=== PATIENT | female | born 2000 | race Caucasian/White ===

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

== ENCOUNTER → 2018-02-28 | Day surgery (SDC) | payer OTHER ==
[~2018-02-28] MED LIST: Dexamethasone 20 MG/5 ML VIAL ONE; Fentanyl 100 MCG/2 ML VIAL ONE; Hydrocodone-Acetamin 15 ML UDCUP ONE; Lidocaine 1% PF 5 ML VIAL ONE; Lidocaine 1% w/Epinephrine 1:100K 30 ML VIAL ONE; Midazolam HCl 2 mg/2 ml Vial ONE; Ondansetron PF 4 MG/2 ML Vial ONE; Oxymetazoline HCl 0.05% ( 15 ML ) ONE; PROPOFOL 200 MG/20 ML VIAL ONE; Succinylcholine Chloride 20 MG/ML 10 ml SYRINGE FS ONE
[2018-02-28 07:55] LABS: BHCG - Serum Negative (NEGATIVE); Pregs Control Background? CLEAR/WHITE (CLR/WHITE); Pregs Control Bar Appear? YES (CONTROL BAR)
--- NOTE | 2018-02-28 09:35 | OP ---
DATE OF PROCEDURE: 02/28/2018 PREOPERATIVE DIAGNOSES: 1. Chronic tonsillitis. 2. Obstructive tonsillar hypertrophy. 3. Obstructive inferior turbinate hypertrophy. POSTOPERATIVE DIAGNOSES: 1. Chronic tonsillitis. 2. Obstructive tonsillar hypertrophy. 3. Obstructive inferior turbinate hypertrophy. PROCEDURES PERFORMED: Tonsillectomy and adenoidectomy over 12 years of age and bilateral nasal endos copy with submucosal resection of inferior turbinates. PROCEDURE #1: TONSILLECTOMY AND ADENOIDECTOMY OVER 12 YEARS OF AGE. PROCEDURE IN DETAIL: After consent was obtained, the patient was identified, brought to the operatin g room, and placed on the operating table in the supine position. General endotracheal anesthesia and intravenous access was obtained and we proceeded with positioning the patient for oropharyngeal surg catarino. Oropharyngeal exposure was obtained with a Zane-Phani mouth gag after a head drape was placed a nd secured with a towel clip. The Zane-Phani mouth gag was then suspended from the Greene tray and pa latal elevation was achieved with a red rubber catheter. We first addressed the adenoid bed and visu alized it under direct mirror visualization with a dental mirror. Under direct visualization, the ad enoids were removed with multiple passes of the adenoid curet. The Cosme-Synephrine saturated gauze sp onge was then placed in the nasopharynx and an appropriate period for hemostasis was observed while t he nasal pack was in place. We proceeded with a tonsillectomy. The right tonsil was addressed first . We used a curved Allis to grasp the tonsil and retract it medially as an anterior pillar incision was made with a #12 blade. The retrotonsillar fascial plane was then established and blunt dissectio n was performed with the suction cautery. Blood vessels were anticipated, identified, and cauterized as they were encountered. Ultimately, dissection was carried to the posterior tonsillar pillar muco sa which was incised hemostatically, as well as the base of tongue connection. The tonsil was then p assed off as a specimen and bleeding points within the tonsillar bed were cauterized under direct vis ualization. We subsequently turned our attention to the contralateral side, where using a similar te chnique, a near identical procedure was performed. Again, the tonsil was grasped and retracted media lly with a curved Allis as an anterior pillar incision was made with a #12 blade. The retrotonsillar fascial plane was established and while the anterior pillar was retracted medially, the hemostatic bl unt dissection of the tonsil with a suction cautery was performed with blood vessels anticipated, alan ntified, and cauterized as they were encountered. Again, dissection continued to the base of tongue and posterior tonsillar pillar mucosa which was incised in a hemostatic fashion. The tonsillar beds were then carefully inspected and bleeding points were identified and cauterized with a suction caute ry. We then removed the nasopharyngeal pack, suctioned the residual blood and the adenoid bed was th en cauterized under direct mirror visualization and residual adenoid tissue was vaporized at this courtney e. After this portion of the procedure, hemostasis was completely obtained. The patient's nasal cav ity, nasopharyngeal, and oral cavity were copiously irrigated with iced saline and subsequently sucti oned. We then used the red rubber catheter to suction the gastric contents and the patient was subse quently aroused, awakened, and extubated without difficulty and transported to the recovery room in s table condition. There were no complications. PROCEDURE #2: BILATERAL NASAL ENDOSCOPY WITH SUBMUCOSAL RESECTION OF INFERIOR TURBINATES. PROCEDURE IN DETAIL: After consent was obtained, the patient was identified, brought to the operatin g room, and placed on the operating room table in the supine position. Consent was obtained, notifyi ng the patient of the possibility of additional infections, bleeding, brain injury, and eye/orbital i njury. The patient was placed on the operating room table, and general endotracheal anesthesia and intravenous access was obtained. The patient was then positioned, prepped and draped for endoscopic sinus surgery. Nasal preparation included trimming nasal vestibular hairs and spraying in topical Af rin. We then placed Afrin topical solution on nasal pledgets and strategically located them intranas ally. The perinasal mucosa was injected with 1% lidocaine with 1:100,000 epinephrine in the submucop erichondrial plane of the septum, lateral nasal wall, and anterior to the uncinate. The patient was then prepped and draped in a sterile fashion and positioned for endoscopic sinus surgery. (Endoscopic Sinus Surgery) With the 0-degree endoscope, the patient underwent systematic nasal endoscopy. There were no suspici ous internasal masses or lesions identified. We then focused our attention to the osteomeatal comple x region under the middle turbinate. At this point, we then turned our attention to the contralateral side and proceeded with endoscopic s inus surgery. At the completion of the case, Rice keel splints were placed in the ethmoid cavities after the ethmoidectomy. There were no complications. The patient tolerated the procedure well and was discharged to the recovery room in stable condition prior to return to the preoperative Day Stay with ultimate discharge home. Prescriptions for pain medication and antibiotics were provid ed. The patient received intramuscular Depo-Medrol during the case.
== END ==
LOC: SDC 06:59
PROVIDERS: ATTEND Specialist
PROC: 0CTPXZZ Resection of Tonsils, External Approach (ICD-10-PCS; principal; 2018-02-28)
PROC: 09TL8ZZ Resection of Nasal Turbinate, Via Natural or Artificial Opening Endoscopic (ICD-10-PCS; principal; 2018-02-28)
PROC: 0CTQXZZ Resection of Adenoids, External Approach (ICD-10-PCS; principal; 2018-02-28)
DX: J35.01 Chronic tonsillitis (principal); J34.3 Hypertrophy of nasal turbinates; J45.909 Unspecified asthma, uncomplicated; Z79.2 Long term (current) use of antibiotics
CPT/HCPCS: 36415; 84703; 85014; 88304; 96374; J1100; J2001; J2250; J2405; J2704; J3010